=== PATIENT | male | born 1980 | race Caucasian/White ===

== ENCOUNTER → 2017-05-05 | Outpatient (CLI) | payer OTHER ==
[2017-05-05 15:17] LABS: BLOOD UREA NITROGEN 21 mg/dL (7-22); BUN/CREATININE RATIO 23.33 (6-20); CALCIUM 9.8 mg/dL (8.7-10.7); EST GLOMERULAR FILTRATION > 60 (>60 ml/min/1.73m(2)); SERUM ALBUMIN 4.9 g/dL (3.5-4.8)
[2017-05-05 15:43] LABS: CHOL/HDL RATIO 3.83 RATIO (0-4.0); LDL CHOLESTEROL,CALCULATED 115.2 mg/dL
[2017-05-05 15:48] LABS: FREE T4 (FREE THYROXINE) 0.9 ng/dL (0.93-1.71)
[2017-05-05 16:07] LABS: HEMATOCRIT 45.5 % (42.0-52.0); HEMOGLOBIN 16.7 g/dL (14.0-18.0); MEAN CORPUSCULAR HGB CONC 36.7 g/dL (33-37); MEAN CORPUSCULAR VOLUME 81.8 FL (80-90); MEAN PLATELET VOLUME 9.8 FL (7.4-12.2); RED BLOOD COUNT 5.56 10^6/uL (4.70-6.10)
== END ==
LOC: LAB 14:52
PROVIDERS: ATTEND Family Medicine
DX: Z00.00 Encounter for general adult medical examination without abnormal findings (principal)
CPT/HCPCS: 36415; 80053; 80061; 84439; 84443; 85027